=== PATIENT | female | born 1990 | race Caucasian/White ===

== ENCOUNTER 2018-06-23 01:46 | Inpatient (IN) | payer BC ==
[2018-06-23] MEDS ORDERED: Buffered Lidocaine 1% SYRIN* 1 ML/SYRINGE INTRADERM ONE (03:00)
[2018-06-23] MEDS ORDERED: Lactated Ringers 1000 ML Bag* 1,000 ML IV ONE (03:00)
[2018-06-23] MEDS ORDERED: Lactated Ringers 1000 ML Bag* 1,000 ML IV SCH (03:00)
--- NOTE | 2018-06-23 03:21 | HP ---
General Information - Reason for Visit IUP@39+6 in labor - General Information Maternal Age: 28 Grav: 1 Para: 0 SAB: 0 IEA: 0 Estimated Due Date: 06/24/18 Determined By: LMP Gestational Age in Weeks/Days: 39+6 Maternal Blood Type and Rh: O Positive - Results this Serology/RPR Result: Reactive Rubella Result: Immune HBsAg Result: Negative HIV Result: Negative GBS Culture Result: Negative Past Medical History Past Medical History Comment: none Pertinent Past Surgical History: None Pertinent Family History: Non-Contributory - Antepartal Records Antepartal Records: Reviewed, Uncomplicated Review of Systems Constitutional: Uncomfortable CV Complaint: No Respiratory: Shortness of Breath: No Gastrointestinal: No Nausea/Vomiting, Normal Bowel Movement Genitourinary: No Dysuria Musculoskeletal: No Complaint, No Epigastric Pain, Contractions Neurological: No Headache, No Visual Changes Movement: Normal - Reports bloody show Exam Allergies/Adverse Reactions: Allergies acetaminophen [From Percocet] Allergy (Verified 06/23/18 02:05) Hives/Diff.Breathing/Itching oxycodone [From Percocet] Allergy (Verified 06/23/18 02:05) Hives/Diff.Breathing/Itching Vital Signs 06/23/18 02:06 Temperature 98.8 F Pulse Rate 80 Respiratory 20 Rate Blood Pressure 111/64 (mmHg) O2 Sat by Pulse 100 Oximetry Lab Values - Entire Visit: Laboratory Tests 06/23/18 02:31 Vag Amniotic Fld Detect Positive - Measurements Height: 5 ft 4 in Weight: 183 lb Weight in lbs: 183.695323 Body Mass Index (BMI): 31.4 Pre- Weight: 145 lb Weight Gained This : 38 lbs and 0 ozs - Exam Breast: Breast Exam Deferred CVA: No CVA Tenderness Extremities: No Edema Heart: Normal Rhythm/Heart Sounds HEENT: No Significant Findings Lungs: Clear Bilaterally Rectal: Rectal Exam Deferred Reflexes: DTR 2+ Thyroid: No Thyromegaly - Abdominal Exam Abdomen Exam: Non-Tender - Ultrasound/Biophysical Profile Ultrasound Status: Not Done Targeted Exam Findings Cervical Exam: 4cm Effacement: 100% Station: 0 Presenting Part: Vertex Membrane Status: SROM - [id number] Amniotic Fluid Evaluation: Positive ROM Plus Bleeding/Discharge: Bloody Show EFM Findings - External Monitor Findings Baseline Heart Rate: 130 External Monitor Findings: Accelerations Present, No Pattern of Variable or Late Decelerations, Variability Moderate Contractions: Regular, Moderate - q2 minutes, 45-90 Seconds Assessment/Plan - Assessment IUP@39+6 in labor, GBS negative, no evidence of metabolic acidemia - Plan Plan: Admit - Anticipate Vaginal Delivery - Date/Time of Admission Date of Admission: 06/23/18 Time of Admission: 03:00
--- NOTE | 2018-06-23 06:32 | PN ---
Progress Note - Progress Note Date of Service: 06/23/18 Note: S: Pt reports feeling the urge to push. Reports regular contractions every 2-3. + FM. Soaking in the tub. Requesting VE. O: VSS FHR via IA 130 Contractions palpate moderate VE: 5/100/0 A: IUP at 39+6 in labor Coping well Appropriate cervical change P: VE PRN Anticipate progression to
--- NOTE | 2018-06-23 08:54 | PN ---
Progress Note - Progress Note Date of Service: 06/23/18 SOAP: Subjective: Pt reports frequent strong ctx, feels pressure with ctx but no urge to push. Pt reports feeling fatigued. She states that she has been drinking fluids regularly and voiding from time to time. Objective: FHR 145 doppler UC's Q 2-3 minutes, 60-80 seconds, moderate strength Appears fatigued but coping well. at bedside, supportive. Cervical exam deferred. Assessment: 28 year old at 39 6/7 weeks gestation in active labor with ruptured membranes, no evidence of acidemia Plan: Anticipate . Labor support and comfort measures. Epidural if pt requests, however at this time pt prefers to avoid medication.
--- NOTE | 2018-06-23 10:14 | PN ---
Progress Note - Progress Note Date of Service: 06/23/18 SOAP: Subjective: Pt reports increased intensity to ctx, was in tub, now sitting in chair. Breathing through the ctx, coping well. Objective: Cervix: 7cm/ 100%/ +1/ vtx FHR 135 by doppler through a contraction Temp 98.3, BP 114/71 Ctx 3-4 minutes, moderate strength Assessment: 28 year old at 39 6/7 weeks gestation in active labor, no evidence of acidemia, GBS negative, coping well. Plan: Continue expectant management, anticipate . Labor support and comfort measures as needed.
--- NOTE | 2018-06-23 12:36 | PN ---
Progress Note - Progress Note Date of Service: 06/23/18 SOAP: Subjective: Pt in tub at this time, reports ctx were more frequent when she was out of tub, but still feel just as strong. Coping well. Objective: FHR 135 per doppler through ctx UCs: Currently Q 5-6 minutes, was 2-3 minutes when out of tub. Cervical exam deferred Temp 98.3 Assessment: 28 year old at 39 6/7 weeks gestation in active labor, no evidence of acidemia. Membranes ruptured 12 hours, no evidence of chorioamnionitis. Plan: Continue expectant management for now. If pt not feeling urge to push ion 1-2 hours, will recheck cervix
--- NOTE | 2018-06-23 13:49 | PN ---
Progress Note - Progress Note Date of Service: 06/23/18 SOAP: Subjective: Pt fatigued, continues to cope well. She reports ctx have spaced out to about 3- 8 minutes apart. She expresses a strong preference for avoiding medical intervention if possible. Objective: FHR 145 UC's Q 3-8 minutes Cervical exam: 7-8cm/ 100%/ +1/ vtx Assessment: 28 year old at 39 6/7 weeks gestation in active labor, GBS negative, experiencing a stall in labor at 7-8 cm. No evidence of acidemia ROM 13 hours. Plan: Pt with strong preference to avoid Pitocin if possible. Baby appears to be in a good position. Likely uterus is tired. Recommended pt try to eat and drink, try different positions. Recommend trying lunge through 3 ctx on each side, also trying ball, forward leaning positions. Will recheck in 1-2 hours.
--- NOTE | 2018-06-23 16:51 | PN ---
Progress Note - Progress Note Date of Service: 06/23/18 SOAP: Subjective: Pt reports ctx stronger, currently about every 5-6 minutes Feels pressure with ctx, but no urge to push Objective: Cervical exam: 8-9 cm/ 100%/ 0 FHR 135 doppler UCs Q5-6 minutes Temp: 98.0 Assessment: 28 year old at 39 6/7 weeks gestation in active labor, no evidence of acidemia, afebrile. Membranes ruptured x16 hours. Pt has had cervical change since last exam. Plan: Pt continues to strongly prefer to avoid Pitocin or other medications. Encourage productive labor positions. Recheck in 1-2 hours or with urge to push.
--- NOTE | 2018-06-23 18:49 | PN ---
Progress Note - Progress Note Date of Service: 06/23/18 SOAP: Subjective: Pt reports increased pressure and feeling like she needs to have a bowel movement. Appears fatigued. Objective: FHR 145 UCs Q4-6 minutes BP-143/83 Temp- 99.2 Cervical exam: 8cm/ 100%/ +1/ vtx Clear fluid/ bloody show Assessment: 28 year old at 39 6/7 weeks gestation in active labor, membranes ruptured x18 hours, no evidence of acidemia. Dilation has again stalled, and pt appears fatigued. Pt afebrile but has rising temp. Plan: Discussed options with pt and including IV fluids, augmentation with Pitocin, epidural or nitrous oxide. After discussing with pt agrees to a bolus of IV fluids.
[2018-06-23 19:45] LABS: ABS Basophils 0 10^3/ul (0-0.2); ABS Eosinophils 0 10^3/ul (0-0.6); ABS Monocytes 1.1 10^3/ul (0-0.8); ABS Neutrophils 10.6 10^3/ul (1.5-7.7); ABS Nucleated RBC 0 10^3/ul; Eosinophil % 0.2 %; Hematocrit 36 % (35-47); Hemoglobin 12.1 g/dl (12.0-16.0); Mean Corpuscular HGB Conc 34 g/dl (31-36); Mean Corpuscular Hemoglobin 31 pg (27-31); Mean Corpuscular Volume 91 fL (80-97); Mean Platelet Volume 8.2 fL (7.4-10.4); Nucleated Red Blood Cells % 0; Platelet Count 137 10^3/ul (150-450); Red Blood Count 3.96 10^6/ul (4.00-5.40); Red Cell Distribution Width 13 % (10.5-15); White Blood Count 12.8 10^3/ul (3.5-10.8)
[2018-06-23] MEDS ORDERED: Oxytocin in LR* 20 UNITS/1,000 ML BAG IVPB ONE (21:36)
--- NOTE | 2018-06-23 21:47 | PN ---
Progress Note - Progress Note Date of Service: 06/23/18 Note: About 1 hour ago, pt remained unchanged from previous exam. Discussed options with pt, including recdommendation to try Pitocin. Pt did agree to IV fluid bolus, which was administered. Pt declined Pitocin at that time. Spinning [employer] technique of side lying release performed through 3 ctx on each side. Pt then placed in forward leaning kneeling position. Pt now reports increased pressure, increased ctx frequency, and urge to push. She is shaking and moaning with ctx, which have increased in frequency from every 4-6 minutes to every 2-3 minutes. Cervical exam 9cm/ 100%, +1/ vtx with bulging bag. Pt already had SROM , but AROM of forebag performed to clear fluid with bloody show. Pt now kneeling in upright position again, breathing through ctx. at bedside, supportive. FHR 145. Anticipate .
--- NOTE | 2018-06-23 23:24 | PN ---
Progress Note - Progress Note Date of Service: 06/23/18 SOAP: Subjective: Pt reports urge to push. Moaning with ctx. Declines Pitocin, epidural. Objective: Cervical exam: anterior lip (could not feel back of cervix, could feel anterior and lateral portions of cervix) T- 98.5 FHR- 150 UCs-2-4 minutes Leaking clear fluid ROM 23 hours Assessment: 28 year old at 39 6/7 weeks gestation in active labor, with prolonged rupture of membranes and slow progress to full dilation, declines Pitocin and epidural, coping well with ctx, afebrile. No evidence of acidemia. Plan: Continue expectant management unless pt consents to trial of Pitocin. Pt is making cervical change, and does appear to be feeling more pressure with ctx. Anticipate . Plan prophylactic Pitocin admin to prevent PPH; will have meds ready and nursing is aware of risk for PPH due to presumedly fatigued uterus.
--- NOTE | 2018-06-23 23:44 | PN ---
Progress Note - Progress Note Date of Service: 06/23/18 Note: Pt again felt urge to push, and requested cervical exam. Exam unchanged from previous. Again recommended Pitocin and/ or epidural, and pt declined. Pt would like to recheck in 30 minutes and if unchanged, may consider Pitocin. FHR 140. UCs Q 2-4 minutes.
[2018-06-24] MEDS ORDERED: Glycerin ADULT SUPP PR PRN (02:29)
[2018-06-24] MEDS ORDERED: Dibucaine 1% 28.35 GM TUBE PR PRN (02:29)
[2018-06-24] MEDS ORDERED: Acetaminophen TAB* 325 MG PO PRN (02:29)
[2018-06-24] MEDS ORDERED: Tetan/Diph/Pertus SYR(Tdap)* 0.5 ML SYR(BOOSTRIX) use SYR IM ONE (02:29)
[2018-06-24] MEDS ORDERED: Witch Hazel PAD* JAR TOPICAL PRN (02:29)
[2018-06-24] MEDS ORDERED: Ibuprofen TAB* 600 MG PO PRN (02:29)
[2018-06-24] MEDS ORDERED: Lactated Ringers 1000 ML Bag* 1,000 ML IV SCH (03:00)
[2018-06-24] MEDS: Docusate CAP* 100 MG PO SCH ×3 (11:49→20:25)
--- NOTE | 2018-06-24 17:14 | PROCNOTE ---
[facility] OB: Delivery Note - Delivery A Date of : 06/24/18 Time of : 01:30 [place] Sex: Female Weight at : 3.516 kg Score 1 Minute: 9 Score 5 Minutes: 9 Gestational Age in Weeks and Days at Delivery: 40 Weeks and 0 Days Delivery Method: Spontaneous Vaginal Labor: Spontaneous Did Patient attempt ?: N/A, No Previous Amniotic Fluid: Clear Estimated Blood Loss: 300 Anesthesia/Analgesia: None Delivered By: Ina Underwood - Nursery Level of Nursery: Regular/Bedside - Perineum Perineal Injury: Abrasion Only - Not Repaired - Events Delivery Events of Note: Protracted/Long Labor, Pitocin Only After Delivery, ROM > 24 Hours - Additional Delivery Notes Additional Delivery Notes: Pt admitted to Labor and Delivery in active labor with ruptured membranes. Pt labored throughout the day and into the night, using hydrotherapy, breathing, and position changes to cope with labor pain. Pt made slow but steady progress until reaching 8-9 cm, at which point she was very fatigued, contractions had spaced out and progress had stalled. At several points Pitocin and/ or epidural were offered and declined by pt, as she had strong preference for avoiding these interventions. Position changes were utilized to try to encourage baby into a favorable position and increase ctx frequency. Eventually pt agreed to establishment of an IV and administration of fluid bolus. The Spin[employer] technique of side-lying release was performed through three contractions on each side, after which contractions dramatically increased in frequency and intensity and pt began to experience cervical change again. Pt slowly progressed to an anterior lip. At that time she was experiencing a strong urge to push, so trial of pushing initiated with manual reduction of cervical lip. Cervical lip successfully reduced over several contractions and pt encouraged to push with ctx. Pt pushed with good effort and consistent descent. Infant eventually came to . Slow, controlled delivery of the head followed, and the shoulders delivered easily after. to maternal abdomen with vigorous cry and HR>100. After waiting for cord pulsation to cease, cord clamped x2 and cut by infant's father. Placenta soon delivered, will side. Fundus initially boggy and pt consented to administration of IV Pitocin. Fundus firmed with fundal massage and Pitocin. Perineum intact, small left periurethral abrasion noted, hemostatic, not repaired. Infant and mother stable at this time, anticipate normal course.
[2018-06-25 07:41] LABS: ABS Basophils 0 10^3/ul (0-0.2); ABS Eosinophils 0.1 10^3/ul (0-0.6); ABS Lymphocytes 1.9 10^3/ul (1.0-4.8); ABS Monocytes 0.7 10^3/ul (0-0.8); ABS Neutrophils 5.1 10^3/ul (1.5-7.7); ABS Nucleated RBC 0 10^3/ul; Eosinophil % 0.7 %; Hematocrit 33 % (35-47); Hemoglobin 11.3 g/dl (12.0-16.0); Lymphocyte % 24.2 %; Mean Corpuscular HGB Conc 34 g/dl (31-36); Mean Corpuscular Hemoglobin 32 pg (27-31); Mean Corpuscular Volume 92 fL (80-97); Nucleated Red Blood Cells % 0; Platelet Count 125 10^3/ul (150-450); Red Blood Count 3.59 10^6/ul (4.00-5.40); Red Cell Distribution Width 13 % (10.5-15); White Blood Count 7.7 10^3/ul (3.5-10.8)
[2018-06-25] MEDS ORDERED: Ferrous Gluconate TAB* 324 MG TAB PO SCH (09:00)
[2018-06-25] MEDS: Docusate CAP* 100 MG PO SCH ×3 (09:32→22:03)
--- NOTE | 2018-06-26 08:32 | PTEDU ---
Patient Name: BEBETO GUZMAN BEBETO GUZMAN selected video: BBOB: Nurturing Your Gorgeous &Growing Baby by to view on 0 06/26/2018 at 8:31:22 AM [id number]
[2018-06-26] MEDS: Docusate CAP* 100 MG PO SCH (09:18)
[2018-06-26 09:23] VITALS: BP 111/65
== END 2018-06-26 13:11 | disposition home or self-care (01) | DRG 560 ==
LOC: MCHOBOUT 01:46 → MCHOB 02:55
PROVIDERS: ADMIT Advanced Practice Midwife; ATTEND Midwife
PROC: 10E0XZZ Delivery of Products of Conception, External Approach (ICD-10-PCS; principal; 2018-06-24)
PROC: 10907ZC Drainage of Amniotic Fluid, Therapeutic from Products of Conception, Via Natural or Artificial Opening (ICD-10-PCS; 2018-06-24)
DX: O63.0 Prolonged first stage (of labor) (principal); Z37.0 Single live birth; O70.0 First degree perineal laceration during delivery; Z3A.40 40 weeks gestation of pregnancy
CPT/HCPCS: 36415; 84112; 85025; 86850; 86900; 86901; A9270-GY